=== PATIENT | female | born 1990 | race Caucasian/White ===

== ENCOUNTER → 2018-03-06 | Outpatient (CLI) | payer MEDICAID ==
[~2018-03-06] MED LIST: GADOBUTROL 10 ML VIAL IVP ONE
== END ==
LOC: FIMAGING 08:25
PROVIDERS: ATTEND Family Medicine
DX: R51 Headache (principal); R20.2 Paresthesia of skin
CPT/HCPCS: A9585

== ENCOUNTER → 2018-04-09 | Outpatient (CLI) | payer MEDICAID ==
[~2018-04-09] MED LIST changes: -GADOBUTROL 10 ML VIAL IVP ONE; +IOPAMIDOL (ISOVUE-300) 100 ML BTL ONE
== END ==
LOC: CIMAGING 08:08
PROVIDERS: ATTEND Internal Medicine Gastroenterology
DX: R93.5 Abnormal findings on diagnostic imaging of other abdominal regions, including retroperitoneum (principal); K59.00 Constipation, unspecified
CPT/HCPCS: 74177-PO; Q9967

== ENCOUNTER → 2018-04-17 | Outpatient (CLI) | payer MEDICAID | LOC: FIMAGING 08:10 | PROVIDERS: ATTEND Internal Medicine Gastroenterology | DX: K59.8 Other specified functional intestinal disorders (principal); K63.89 Other specified diseases of intestine ==